=== PATIENT | female | born 1945 | race Caucasian/White ===

== ENCOUNTER 2019-02-23 22:48 | Emergency (ER) | payer MEDICARE, OTHER ==
[2019-02-23] MEDS ORDERED: SODIUM CHLORIDE 0.9% 500 ML 500 ML IV STA (23:14)
--- NOTE | 2019-02-23 23:34 | ED ---
General Adult HPI - General Chief complaint: Shortness of Breath Stated complaint: Cough, Fever Time Seen by Provider: 02/23/19 23:14 Source: patient Mode of arrival: ambulatory Limitations: no limitations - History of Present Illness Initial comments: Dictation was produced using [employer] dictation software. please excuse any grammatical, word or spelling errors. Chief Complaint: 73-year-old female with multiple comorbidities sent in from local urgent care for URI type symptoms. History of Present Illness: She is a 73-year-old female she has multiple comorbidities she has been having URI type symptoms for the last 2-3 days. She was seen at the urgent care were the worked her up. She was diagnosed with bronchopneumonia after an x-ray. She also complains of sore throat which reports that they did not swab her throat. Patient has not been having a runny nose. She states her cough has been getting worse. She reports that is nonproductive. She was prescribed Augmentin, albuterol inhaler, Benadryl and Diflucan. She was discharged however she was not able to fill her prescriptions so she came to the emergency department for further care. She reports that she did not receive steroids because of her history of diabetes according to urgent care provider. The ROS documented in this emergency department record has been reviewed and confirmed by me. Those systems with pertinent positive or negative responses have been documented in the HPI. All other systems are other negative and/or noncontributory. PHYSICAL EXAM: General Impression: Alert and oriented x3, not in acute distress HEENT: Normocephalic atraumatic, extra-ocular movements intact, pupils equal and reactive to light bilaterally, mucous membranes moist. Cardiovascular: Heart regular rate and rhythm, S1&S2 audible, no murmurs, rubs or gallops Chest: Lungs clear to auscultation bilaterally, no rhonchi, no wheeze, no rales Abdomen: Bowel sounds present, abdomen soft, non-tender, non-distended, no organomegaly Musculoskeletal: Pulses present and equal in all extremities, no peripheral edema Motor: no focal deficits noted Neurological: CN II-XII grossly intact, no focal motor or sensory deficits noted Skin: Intact with no visualized rashes Psych: Normal affect and mood ED course: 73-year-old female with URI type symptoms. She was diagnosed tentatively with pneumonia from urgent care. All signs upon arrival shows temperature 101.7, rest of vital signs within acceptable limits. Laboratory evaluation obtained. CBC, metabolic panel is unremarkable. Influenza test and rapid strep test is negative. Chest x-ray is nonacute. There is no findings to suggest pneumonia. This point there is no clear source of patient's symptoms however there is strong likelihood that this is secondary to viral URI. Patient does not have [facility] that's providing medications at this time. We will give her one dose of Augmentin and a starter pack here. Patient to be also given albuterol inhaler. She is told to fill the rest of her prescriptions tomorrow. Pending urine studies EKG interpretation: Ventricular rate 70, normal sinus rhythm, IL interval 154, care is 84, QTC 410. No IL prolongation, no QTC prolongation, no ST or T-wave changes noted. s. Overall, this EKG is unremarkable - Related Data Home Medications Medication Instructions Recorded Confirmed Aspirin 81 mg PO DAILY 07/07/15 02/23/19 Candesartan Cilexetil [Atacand] 32 mg PO DAILY 07/07/15 02/23/19 Cetirizine HCl [Zyrtec] 10 mg PO HS 07/07/15 02/23/19 Cholecalciferol [Vitamin D3] 5,000 unit PO DAILY 07/07/15 02/23/19 Hydrochlorothiazide [Hydrodiuril] 25 mg PO DAILY 07/07/15 02/23/19 Nebivolol HCl [Bystolic] 5 mg PO HS 07/07/15 02/23/19 Rosuvastatin Calcium [Crestor] 10 mg PO HS 07/07/15 02/23/19 Thyroid,Pork [[place] Thyroid] 60 mg PO DAILY 07/07/15 02/23/19 Vitamin E (Dl,Tocopheryl Acet) 400 unit PO DAILY 07/07/15 02/23/19 [Vitamin E] Insulin Aspart (For Pump) [NovoLOG 0.01 unit SQ-PUMP CONTINUOUS 02/23/19 02/23/19 (For Pump)] Previous Rx's Medication Instructions Recorded Benzonatate [Tessalon Perles] 200 mg PO TID PRN #12 capsule 02/24/19 Allergies Allergy/AdvReac Type Severity Reaction Status Date / Time adhesive Allergy CONTACT Verified 02/23/19 23:41 DERMATITIS codeine Allergy PERSONALITY Verified 02/23/19 23:41 CHANGE, ANGRY, "LIKE ON SPEED" erythromycin base Allergy Nausea & Verified 02/23/19 23:41 Vomiting metronidazole [From Flagyl] Allergy PERSONALITY Verified 02/23/19 23:41 CHANGE, ANGRY, "LIKE ON SPEED" neomycin Allergy CONTACT Verified 02/23/19 23:41 DERMATITIS Review of Systems ROS Statement: Those systems with pertinent positive or pertinent negative responses have been documented in the HPI. ROS Other: All systems not noted in ROS Statement are negative. Past Medical History Past Medical History: Cancer, Diabetes Mellitus, GERD/Reflux, Hyperlipidemia, Hypertension, Osteoarthritis (OA), Renal Disease, Sleep Apnea/CPAP/BIPAP, Thyroid Disorder Additional Past Medical History / Comment(s): THYROID NODULE. SKIN CA. RECENT EKG NL; ECHO DONE - MILD-MOD LEAKING VALVE, PLANS TO HAVE F/U. PROB W/ LT KNEE, INJ 07/07/15. USES CPAP. HEARTBURN OCC; DIFF SWALLOWING LARGE PILLS, SOME FOOD. IBS - PAIN ACROSS UPPER ABD W/ DRY FOODS, CONSTIPATION WORSE LATELY. History of Any Multi-Drug Resistant Organisms: None Reported Past Surgical History: Hysterectomy, Joint Replacement, Orthopedic Surgery Additional Past Surgical History / Comment(s): left knee Past Anesthesia/Blood Transfusion Reactions: Previous Problems w/ Anesthesia, Motion Sickness Additional Past Anesthesia/Blood Transfusion Reaction / Comment(s): AWAKE ON/OFF W/ FOOT SPUR SURG, IN "TWILIGHT SLEEP;" LONG TIME TO AWAKEN ONCE. Past Psychological History: No Psychological Hx Reported Smoking Status: Never smoker Past Alcohol Use History: Occasional Past Drug Use History: None Reported - Past Family History Mother Family Medical History: Cancer General Exam Limitations: no limitations Course Vital Signs 02/23/19 23:03 Temperature 101.7 F H Pulse Rate 86 Respiratory 18 Rate Blood Pressure 140/63 O2 Sat by Pulse 96 Oximetry Medical Decision Making - Lab Data Result diagrams: 02/23/19 23:40 02/23/19 23:40 Lab Results 02/23/19 02/23/19 02/23/19 Range/Units 23:35 23:35 23:40 WBC 5.2 (3.8-10.6) k/uL RBC 4.72 (3.80-5.40) m/uL Hgb 14.0 (11.4-16.0) gm/dL Hct 42.3 (34.0-46.0) % MCV 89.6 (80.0-100.0) fL MCH 29.7 (25.0-35.0) pg MCHC 33.1 (31.0-37.0) g/dL RDW 12.7 (11.5-15.5) % Plt Count 211 (150-450) k/uL Neutrophils % 65 % Lymphocytes % 22 % Monocytes % 9 % Eosinophils % 1 % Basophils % 1 % Neutrophils # 3.4 (1.3-7.7) k/uL Lymphocytes # 1.1 (1.0-4.8) k/uL Monocytes # 0.5 (0-1.0) k/uL Eosinophils # 0.0 (0-0.7) k/uL Basophils # 0.0 (0-0.2) k/uL Sodium (137-145) mmol/L Potassium (3.5-5.1) mmol/L Chloride (98-107) mmol/L Carbon Dioxide (22-30) mmol/L Anion Gap mmol/L BUN (7-17) mg/dL Creatinine (0.52-1.04) mg/dL Est GFR (CKD-EPI)AfAm (>60 ml/min/1.73 sqM) Est GFR (CKD-EPI)NonAf (>60 ml/min/1.73 sqM) Glucose (74-99) mg/dL Calcium (8.4-10.2) mg/dL Total Bilirubin (0.2-1.3) mg/dL AST (14-36) U/L ALT (9-52) U/L Alkaline Phosphatase (38-126) U/L Troponin I (0.000-0.034) ng/mL Total Protein (6.3-8.2) g/dL Albumin (3.5-5.0) g/dL Influenza Type A RNA Not Detected (Not Detectd) Influenza Type B (PCR) Not Detected (Not Detectd) Group A Strep Rapid Negative (Negative) 02/23/19 02/23/19 Range/Units 23:40 23:40 WBC (3.8-10.6) k/uL RBC (3.80-5.40) m/uL Hgb (11.4-16.0) gm/dL Hct (34.0-46.0) % MCV (80.0-100.0) fL MCH (25.0-35.0) pg MCHC (31.0-37.0) g/dL RDW (11.5-15.5) % Plt Count (150-450) k/uL Neutrophils % % Lymphocytes % % Monocytes % % Eosinophils % % Basophils % % Neutrophils # (1.3-7.7) k/uL Lymphocytes # (1.0-4.8) k/uL Monocytes # (0-1.0) k/uL Eosinophils # (0-0.7) k/uL Basophils # (0-0.2) k/uL Sodium 139 (137-145) mmol/L Potassium 4.4 (3.5-5.1) mmol/L Chloride 103 (98-107) mmol/L Carbon Dioxide 26 (22-30) mmol/L Anion Gap 10 mmol/L BUN 31 H (7-17) mg/dL Creatinine 1.58 H (0.52-1.04) mg/dL Est GFR (CKD-EPI)AfAm 37 (>60 ml/min/1.73 sqM) Est GFR (CKD-EPI)NonAf 32 (>60 ml/min/1.73 sqM) Glucose 132 H (74-99) mg/dL Calcium 8.9 (8.4-10.2) mg/dL Total Bilirubin 0.3 (0.2-1.3) mg/dL AST 28 (14-36) U/L ALT 16 (9-52) U/L Alkaline Phosphatase 84 (38-126) U/L Troponin I <0.012 (0.000-0.034) ng/mL Total Protein 7.2 (6.3-8.2) g/dL Albumin 4.2 (3.5-5.0) g/dL Influenza Type A RNA (Not Detectd) Influenza Type B (PCR) (Not Detectd) Group A Strep Rapid (Negative) Disposition Clinical Impression: Fever, Viral URI Disposition: HOME SELF-CARE Condition: Good Instructions (If sedation given, give patient instructions): Cold Symptoms (ED) Prescriptions: Benzonatate [Tessalon Perles] 200 mg PO TID PRN #12 capsule PRN Reason: Cough Is patient prescribed a controlled substance at d/c from ED?: No Referrals: Nonstaff,Physician [Primary Care Provider] - 1-2 days Time of Disposition: 01:03
[2019-02-24 00:01] LABS: Basophils % (A) 1 %; Eosinophils % (A) 1 %; HCT 42.3 % (34.0-46.0); Lymphocytes # (A) 1.1 k/uL (1.0-4.8); Lymphocytes % (A) 22 %; MCH 29.7 pg (25.0-35.0); MCHC 33.1 g/dL (31.0-37.0); MCV 89.6 fL (80.0-100.0); Mean Platelet Volume 6.4; Monocytes # (A) 0.5 k/uL (0-1.0); Monocytes % (A) 9 %; Neutrophils # (A) 3.4 k/uL (1.3-7.7); Neutrophils % (A) 65 %; Platelet Count 211 k/uL (150-450); RBC 4.72 m/uL (3.80-5.40); RDW 12.7 % (11.5-15.5); WBC 5.2 k/uL (3.8-10.6)
--- NOTE | 2019-02-24 00:05 | XR ---
EXAM: XR Chest, 2 Views CLINICAL HISTORY: ITS.REASON XR Reason: difficulty breathing TECHNIQUE: Frontal and lateral views of the chest. COMPARISON: No relevant prior studies available. FINDINGS: Lungs: Unremarkable. No consolidation. Pleural space: Unremarkable. No pneumothorax. Heart: No suspicious enlargement. Mediastinum: Unremarkable. Bones/joints: No acute fracture. IMPRESSION: No acute findings.
[2019-02-24 00:21] LABS: Albumin 4.2 g/dL (3.5-5.0); Calcium 8.9 mg/dL (8.4-10.2); Potassium 4.4 mmol/L (3.5-5.1); Total Bilirubin 0.3 mg/dL (0.2-1.3); Total Protein 7.2 g/dL (6.3-8.2)
[2019-02-24] MEDS ORDERED: AMOXIC-POT CLAV 875MG STARTER 2 EACH TABLET PO STA (00:58)
[2019-02-24] MEDS ORDERED: ALBUTEROL NEBULIZED 2.5 MG/3 ML INHALATION STA (01:05)
[2019-02-24 01:27] LABS: Appearance,Urine Clear (Clear); Bilirubin,Urine Negative (Negative); Blood,Urine Negative (Negative); Color,Urine Yellow; Glucose,Urine (UA) Negative (Negative); Ketones,Urine Negative (Negative); Leukocyte Esterase,Urine Negative (Negative); Nitrite,Urine Negative (Negative); Protein,Urine Trace (Negative); Specific Gravity,Urine 1.025 (1.001-1.035); Urobilinogen,Urine <2.0 mg/dL (<2.0)
[2019-02-24] MEDS ORDERED: IPRATROPIUM-ALBUTEROL 3 ML NEB INHALATION STA (01:34)
[2019-02-24 02:04] VITALS: RESP 18
[2019-02-24 02:08] VITALS: BP 138/78; PULSE 88; TEMP 99
== END 2019-02-24 02:07 | disposition home or self-care (01) ==
LOC: EC 22:48
DX: J06.9 Acute upper respiratory infection, unspecified (principal); E78.5 Hyperlipidemia, unspecified; I10 Essential (primary) hypertension; E11.9 Type 2 diabetes mellitus without complications; M19.90 Unspecified osteoarthritis, unspecified site; G47.30 Sleep apnea, unspecified; E04.1 Nontoxic single thyroid nodule; Z88.1 Allergy status to other antibiotic agents; Z88.5 Allergy status to narcotic agent; Z91.048 Other nonmedicinal substance allergy status; Z79.4 Long term (current) use of insulin; Z79.82 Long term (current) use of aspirin; Z79.890 Hormone replacement therapy; Z79.899 Other long term (current) drug therapy; Z85.828 Personal history of other malignant neoplasm of skin; Z96.652 Presence of left artificial knee joint; Z96.41 Presence of insulin pump (external) (internal); Z53.8 Procedure and treatment not carried out for other reasons
CPT/HCPCS: 36415; 71046; 80053; 81003; 84484; 85025; 87081; 87086; 87430; 87502; 93005; 94640; 99285

== ENCOUNTER 2021-08-31 07:29 | Day surgery (SDC) | payer MEDICARE, OTHER ==
[2021-08-30 09:38] VITALS: BMI 36.2
[2021-08-31] MEDS ORDERED: LACTATED RINGERS 1,000 ML IV SCH (07:34)
[2021-08-31] MEDS ORDERED: LIDOCAINE 1% (10MG/ML) FOR IV START INTRADERMA PRN (07:34)
[2021-08-31 08:19] VITALS: RESP 16; TEMP 98
[2021-08-31 08:23] LABS: Glucose,Whole Blood 151 mg/dL (75-99)
[2021-08-31] MEDS ORDERED: PROPOFOL 10 MG/ML 20 ML VIAL IV ONE (08:44)
[2021-08-31] MEDS ORDERED: LIDOCAINE 1% INJ 10MG/ML (20 ML MDV) ONE (08:44)
--- NOTE | 2021-08-31 08:48 | P.GSHP ---
History of Present Illness H&P Date: 08/31/21 Chief Complaint: GERD Cyst 75-year-old female who presents today for EGD. She's had issues.. GERD. Past Medical History Past Medical History: Cancer, Diabetes Mellitus, GERD/Reflux, Hyperlipidemia, Hypertension, Osteoarthritis (OA), Renal Disease, Sleep Apnea/CPAP/BIPAP, Thyroid Disorder Additional Past Medical History / Comment(s): THYROID NODULE. SKIN CA; ECHO DONE - MILD-MOD LEAKING VALVE, P PROB USES CPAP. HEARTBURN , DIFF SWALLOWING LARGE PILLS, SOME FOOD. IBS - PAIN ACROSS UPPER ABD W/ , CONSTIPATION AT TIMES , UPPER ABDOMINAL PAIN . TYPE 2 DIABETIC-INSULIN PUMP , SKIN CANCER, CHRONIC KIDNEY DISEASE- 3B History of Any Multi-Drug Resistant Organisms: None Reported Past Surgical History: Breast Surgery, Hysterectomy, Joint Replacement, Or thopedic Surgery, Tonsillectomy Additional Past Surgical History / Comment(s): TOTAL LEFT KNEE, LEFT FOOT (HEEL), LEFT BREAST BIOPSY Past Anesthesia/Blood Transfusion Reactions: Previous Problems w/ Anesthesia, Motion Sickness Additional Past Anesthesia/Blood Transfusion Reaction / Comment(s): AWAKE ON/OFF W/ FOOT SPUR SURG, IN "TWILIGHT SLEEP;" LONGER TIME TO AWAKEN ONCE. Smoking Status: Never smoker - Past Family History Mother Family Medical History: Cancer Additional Family Medical History / Comment(s): BREAST CANCER Medications and Allergies Home Medications Medication Instructions Recorded Confirmed Type Aspirin 81 mg PO DAILY 07/07/15 08/30/21 History Candesartan Cilexetil [Atacand] 32 mg PO DAILY 07/07/15 08/30/21 History Cetirizine HCl [Zyrtec] 10 mg PO HS 07/07/15 08/30/21 History Cholecalciferol [Vitamin D3] 2,000 unit PO DAILY 07/07/15 08/30/21 History Rosuvastatin Calcium [Crestor] 10 mg PO HS 07/07/15 08/30/21 History hydroCHLOROthiazide [Hydrodiuril] 25 mg PO DAILY 07/07/15 08/30/21 History Insulin Aspart (For Pump) [NovoLOG 0.01 unit SQ-PUMP CONTINUOUS 02/23/19 08/30/21 History (For Pump)] Clotrimazole Cream [Lotrimin Cream] 1 applic TOPICAL DAILY PRN 08/30/21 08/30/21 History Estrogens, Conjugated [Premarin] 0.75 mg PO DAILY 08/30/21 08/30/21 History Fluocinonide/Emollient Base 1 applic TOPICAL DAILY PRN 08/30/21 08/30/21 History [Fluocinonide-E 0.05% Cream] Magnesium 400 mg PO Q72H 08/30/21 08/30/21 History Nebivolol HCl [Bystolic] 5 mg PO DAILY 08/30/21 08/30/21 History Thyroid,Pork [[place] Thyroid] 60 mg PO DAILY 08/30/21 08/30/21 History Allergies Allergy/AdvReac Type Severity Reaction Status Date / Time adhesive Allergy CONTACT Verified 08/31/21 07:52 DERMATITIS clotrimazole Allergy Unknown Verified 08/31/21 07:52 codeine Allergy PERSONALITY Verified 08/31/21 07:52 CHANGE, ANGRY, "LIKE ON SPEED" erythromycin base Allergy Nausea & Verified 08/31/21 07:52 Vomiting formaldehyde Allergy Rash/BURNING Verified 08/31/21 07:52 FEELING hydrocodone [From [place]] Allergy "PERSONALITY Verified 08/31/21 07:52 CHANGES" ketorolac [From Toradol] Allergy Unknown Verified 08/31/21 07:52 levothyroxine Allergy TONGUE Verified 08/31/21 07:52 SWELLING metronidazole [From Flagyl] Allergy PERSONALITY Verified 08/31/21 07:52 CHANGE, ANGRY, "LIKE ON SPEED" mold Allergy Rash/STUFFED Verified 08/31/21 07:52 UP-SINUS neomycin Allergy CONTACT Verified 08/31/21 07:52 DERMATITIS oxycodone Allergy 'DIDN'T Verified 08/31/21 07:52 HELP PAIN, PERSONALITY CHANGE " tramadol [From Ultram] Allergy Hallucinati Verified 08/31/21 07:52 ons Surgical - Exam Vital Signs Temp Pulse Resp BP Pulse Ox 98.0 F 74 16 182/73 96 08/31/21 08:03 08/31/21 08:03 08/31/21 08:03 08/31/21 08:03 08/31/21 08:03 - General well developed, well nourished, no distress - Eyes PERRL - ENT normal pinna - Neck no masses - Respiratory normal expansion - Cardiovascular Rhythm: regular - Abdomen Abdomen: soft, non tender Results - Labs Abnormal Lab Results - Last 24 Hours (Table) 08/31/21 Range/Units 08:12 POC Glucose (mg/dL) 151 H (75-99) mg/dL Assessment and Plan Assessment: GERD. Hiatal hernia. We'll perform EGD.
--- NOTE | 2021-08-31 08:57 | P.OP ---
Date of Procedure: 08/31/21 Preoperative Diagnosis: GERD Postoperative Diagnosis: Antral gastritis Small hiatal hernia Minimal esophagitis Procedure(s) Performed: EGD Anesthesia: MAC Surgeon: Luis F White Pathology: other (, Esophagus , antrum) Condition: stable Disposition: PACU Description of Procedure: The patient's placed on the endoscopy table in the lateral position. She received IV sedation. The gastroscope placed oropharynx passed in the esophagus and into the stomach. Scope was then placed through the pylorus. The first and second portion duodenum appeared normal. Scope was then brought back the antrum this appeared mildly inflamed. A biopsies performed. The scope was then retroflexed and the remainder of the stomach appeared normal. There was a minimal hiatal hernia. The GE junction was at 40 cm. The distal esophagus minimal inflamed. A biopsies performed. The proximal esophagus appeared normal. Scope withdrawn for patient.
[2021-08-31 09:19] VITALS: BP 143/87; PULSE 62
--- NOTE | 2021-08-31 09:19 | P.OP ---
Date of Procedure: 08/31/21 Preoperative Diagnosis: Screening colonoscopy Postoperative Diagnosis: Rectal polyp Severe diverticulosis Procedure(s) Performed: Colonoscopy Anesthesia: MAC Surgeon: Luis F White Pathology: other (Rectal polyp) Condition: stable Disposition: PACU Description of Procedure: Patient's placed on the endoscopy table in the lateral position. She received IV sedation. The digital rectal exam was performed which revealed a few internal hemorrhoids. Flexible colonoscope was then placed patient anus and passed throughout the colon. The patient had extensive diverticular changes and sigmoid colon. The scope could not be passed beyond the sigmoid colon due to extensive diverticular disease. Scope was then brought back and the rectum there was a peduncular polyp seen this removed with the snare. Scope withdrawn for patient. Patient scheduled for a barium enema.
== END 2021-08-31 09:51 | disposition home or self-care (01) ==
LOC: ORWHC2ENDO 07:29
PROVIDERS: ATTEND Surgery
DX: Z12.11 Encounter for screening for malignant neoplasm of colon (principal); K62.1 Rectal polyp; K57.90 Diverticulosis of intestine, part unspecified, without perforation or abscess without bleeding; K21.9 Gastro-esophageal reflux disease without esophagitis; E11.9 Type 2 diabetes mellitus without complications; E78.5 Hyperlipidemia, unspecified; I10 Essential (primary) hypertension
CPT/HCPCS: 43239; J2001; J2704; 88305